=== PATIENT | female | born 1990 | race African-American/Black ===

== ENCOUNTER 2017-10-02 14:04 | Emergency (ER) | payer OTHER ==
[2017-10-02 14:18] VITALS: BP 102/74; PULSE 79; TEMP 97.6; BMI 24.4
--- NOTE | 2017-10-02 15:33 | PDOC ---
History of Present Illness - General Chief Complaint: Injury Stated Complaint: FALL Time Seen by Provider: 10/02/17 14:56 History Source: Patient Exam Limitations: No Limitations - History of Present Illness Initial Comments: CHIEF COMPLAINT: 27 y/o afebrile, 6 week post female c/o butt pain s/p fall today. HISTORY OF PRESENT ILLNESS: The patient states she slipped going down the stairs and fell onto her butt. She states she cannot bend or sit down. She denies bowel/bladder incontinence, saddle anesthesia, numbness/tingling in LEs. Vital signs on arrival are within normal limits. REVIEW OF SYSTEMS: GENERAL/CONSTITUTIONAL: No fever/chills. No weakness. No weight change. GENITOURINARY: No dysuria, frequency, or change in urination. No incontinence. MUSCULOSKELETAL: +lower back and butt pain. SKIN: No rash or easy bruising. NEUROLOGIC: No headache, vertigo, loss of consciousness, or loss of sensation. PHYSICAL EXAM: GENERAL: The patient is awake, alert, and fully oriented, in no acute distress. BACK: Exquisite TTP of midline sacrum without crepitus EXTREMITIES: Normal range of motion, no edema. NEUROLOGICAL: Normal speech, normal gait. CN II-XII grossly intact. NO saddle anesthesia. Sensory intact in b/l LEs. PSYCH: Normal mood, normal affect. SKIN: Warm, dry, normal turgor, no rashes or lesions noted. Past History - Past Medical History Allergies/Adverse Reactions: Allergies Allergy/AdvReac Type Severity Reaction Status Date / Time No Known Allergies Allergy Verified 10/02/17 14:18 Home Medications: Ambulatory Orders NK [No Known Home Medication] 10/02/17 COPD: No - Suicide/Smoking/Psychosocial Hx Smoking History: Never smoked Have you smoked in the past 12 months: No Information on smoking cessation initiated: No Hx Alcohol Use: No Drug/Substance Use Hx: No Substance Use Type: None *Physical Exam - Vital Signs Last Vital Signs Temp Pulse Resp BP Pulse Ox 97.6 F 79 20 102/74 97 10/02/17 14:15 10/02/17 14:15 10/02/17 14:15 10/02/17 14:15 10/02/17 14:15 Medical Decision Making - Medical Decision Making A/P: 27 y/o female with sacral pain s/p slip and fall. Plan is as follows: 1. hcg 2. Xray lumbar/sacral spine and pelvis 3. IM Toradol The patient is refusing all medication. Lumbar/sacral spine/pelvis IMPRESSION: No evidence of acute fracture or dislocation in the pelvis. Anatomic alignment of the lumbar vertebra with no definite lumbar spine fracture. Somewhat rounded calcification projecting over the right upper quadrant of the abdomen, adjacent to the right L2 transverse process, may be a calcified gallstone or within bowel. Gave the patient all of her results. She continues to refuse pain medication. Suggested she take Motrin at home with food for pain, apply ice to affected area and buy a cushioned seat to help with pain while sitting. Pt instructed to return to the ER with any worsening or concerning symptoms. The patient verbalizes understanding of all instructions, has no further questions and is awaiting discharge. *DC/Admit/Observation/Transfer Diagnosis at time of Disposition: Sacral back pain - Discharge Dispostion Disposition: HOME Condition at time of disposition: Stable - Referrals Referrals: Negar Lopez [Primary Care Provider] - - Patient Instructions Printed Discharge Instructions: DI for Low Back Pain, How To Perform RICE (Rest , Ice, Compress, Elevate) Additional Instructions: Discharge Instructions: -The xrays of your spine were normal -Take 600mg of Motrin or Ibuprofen every 6 hours with food for pain -Apply ice to affected area -Buy a donut cushion at a local pharmacy to help relieve pain while sitting -Follow up with your doctor within 1 week -Return to the ER with any worsening or concerning symptoms - Post Discharge Activity
== END 2017-10-02 17:10 | disposition home or self-care (01) ==
LOC: JERFT 14:04
DX: M54.5 Low back pain (principal); S39.82XA Other specified injuries of lower back, initial encounter; W10.8XXA Fall (on) (from) other stairs and steps, initial encounter; Y93.89 Activity, other specified; Y92.89 Other specified places as the place of occurrence of the external cause; Y99.8 Other external cause status
CPT/HCPCS: 72100-TC; 72170-TC; 72220-TC; 84703; 99281-25